=== PATIENT | female | born 1985 | race Caucasian/White ===

== ENCOUNTER 2021-04-17 14:57 | Emergency (ER) | payer BC, SELFPAY ==
--- NOTE | ~2021-04-17 | XR_ITS ---
EXAMINATION: XR chest 2V EXAM DATE: 04/17/2021 15:52 INDICATION: non prod cough x 6 weeks smoker TECHNIQUE: Frontal and lateral projections of the chest obtained and reviewed. There is no prior eleanor dy for comparison. FINDINGS: Moderate hyperinflation. The lungs are clear. There are no pleural effusions. The cardio mediastinal silhouette is within normal limits. There is no pneumothorax suspected. The bones and s oft tissues are unremarkable. There are cholecystectomy clips. IMPRESSION: Moderate hyperinflation. Reviewed, dictated and finalized at location B. [employer] IMPRESSION: Moderate hyperinflation.
[2021-04-17 15:12] VITALS: BP 131/83; PULSE 110; RESP 16; TEMP 36.8; O2SAT 100
--- NOTE | 2021-04-17 15:23 | ED.URI ---
HPI - URI/Sore Throat General Chief Complaint: Upper Respiratory Infection Stated Complaint: Cough Source: patient and RN notes reviewed Mode of arrival: ambulatory Limitations: no limitations History of Present Illness HPI Narrative: 35-year-old female presented for complaint of cough for approximately 1 month. Cough is productive of white or clear sputum. She also endorses shortness of breath with exertion and with coughing and occasionally feels dizzy with exertion. She denies shortness of breath at rest, chest pain, heart racing, fever or chills. Endorses a history of chronic bronchitis and states she always has a cough, she smokes 1/2 pack/day, states she is cutting down. She has not had a Covid booster yet states she was tested last month when symptoms started and was given antibiotics with temporary relief in symptoms. She has a nebulizer at home which she used once a few days ago and is out of medication, has an albuterol inhaler PRN. Denies sick contacts. Has not been able to establish with PCP. MD elicited complaint: cough Related Data Allergies Allergy/AdvReac Type Severity Reaction Status Date / Time morphine Allergy Unknown Stopped Verified 04/17/21 14:59 Breathing Contrast Media Allergy Unknown Unknown Uncoded 04/17/21 14:59 Review of Systems Review of Systems: CONSTITUTIONAL: Denies malaise, chills, sweats, fever EYES: Denies visual changes, redness, or discharge ENT: Denies rhinorrhea, congestion, sinus pain, otalgia, sore throat CARDIOVASCULAR: Denies chest pain, palpitations, edema RESPIRATORY: Reports cough, sob with exertion GASTROINTESTINAL: Denies abdominal pain, nausea, vomiting, diarrhea SKIN: Denies rash or itching MUSCULOSKELETAL: Denies myalgia NEUROLOGIC: Denies headache Exam Narrative: GENERAL: Ill-appearing, nontoxic no acute distress. Appears older than stated age HEAD: Normocephalic EYES: PERRLA, conjunctivae clear ENT: Mucous membranes moist. TM pearly razo with dull light reflex bilaterally; no tragal tenderness. Oropharynx erythematous without lesions or exudate, no drooling, no hoarseness, no trismus, uvula midline. Poor dentition NECK: Supple. No lymphadenopathy CHEST: Lungs diminished, breath sounds equal. No wheezing, rhonchi, rales, or stridor. No respiratory distress, speaks in full sentences. HEART: Regular rate regular, tachycardic No murmur heard. SKIN: Warm, dry, no rash. NEURO: Alert and oriented x3. PSYCH: Anxious Course Course Emergency Course: CXR reviewed with pt. Patient is aware of diagnosis, understands and agrees to treatment plan. Anticipatory guidance given. Patient agrees to follow-up as directed and is aware of reasons to seek care at the emergency department. Portions of this record may have been created with voice recognition software Level of Care: Express Care Visit Vital Signs Vital signs: Vital Signs Temperature 98.3 F 04/17/21 15:12 Pulse Rate 110 H 04/17/21 15:12 Respiratory Rate 16 04/17/21 15:12 Blood Pressure 131/83 04/17/21 15:12 Pulse Oximetry 100 04/17/21 15:12 Temperature 98.3 F 04/17/21 15:12 Pulse Rate 110 H 04/17/21 15:12 Respiratory Rate 16 04/17/21 15:12 Blood Pressure 131/83 04/17/21 15:12 Pulse Oximetry 100 04/17/21 15:12 reviewed MDM - URI/Sore Throat Differential Diagnosis Differential diagnosis: Likely upper respiratory infection, sinusitis and viral infection Imaging Data Attestation: I personally reviewed and interpreted this imaging study as follows: My impression: Moderate hyperinflation. Radiologist's impression: EXAMINATION: XR chest 2V EXAM DATE: 04/17/2021 15:52 INDICATION: non prod cough x 6 weeks smoker TECHNIQUE: Frontal and lateral projections of the chest obtained and reviewed. There is no prior study for comparison. FINDINGS: Moderate hyperinflation. The lungs are clear. There are no pleural effusions. The cardiomediastinal silhouette is within normal limits.
== END 2021-04-17 16:15 | disposition home or self-care (01) ==
PROVIDERS: Emergency Provider Nurse Practitioner Family
DX: J98.01 Acute bronchospasm (principal); F17.200 Nicotine dependence, unspecified, uncomplicated
CPT/HCPCS: 71046; 99213; G0463